=== PATIENT | female | born 1955 | race Caucasian/White ===

== ENCOUNTER → 2017-09-09 | Outpatient (CLI) | payer OTHER ==
--- NOTE | 2017-09-09 15:10 | XR ---
EXAMINATION TYPE: XR knee complete RT DATE OF EXAM: 09/09/2017 CLINICAL HISTORY: Generalized right knee pain for 2 months. TECHNIQUE: Three views of the right knee are obtained. COMPARISON: None. FINDINGS: Osseous structures are somewhat demineralized. There is no acute fracture/dislocation evide nt in right knee. Is mild tricompartment joint space loss without significant spurring. The overlying soft tissue appears unremarkable. IMPRESSION: As above.
== END | disposition home or self-care (01) ==
LOC: RADXRYALE 14:52
PROVIDERS: ATTEND Physician Assistant Medical
DX: M25.861 Other specified joint disorders, right knee (principal)

== ENCOUNTER → 2019-04-20 | Outpatient (CLI) | payer OTHER ==
--- NOTE | 2019-04-20 13:49 | XR ---
EXAMINATION TYPE: XR finger RT DATE OF EXAM: 04/20/2019 COMPARISON: NONE HISTORY: Right hand pain for 6 months. No known injury. Pain is localized to the first carpometacarpa l joint TECHNIQUE: 2 views of the right thumb/first digit were obtained FINDINGS: There is degenerative change of the first carpometacarpal joint with opposing surface scler osis, subchondral cyst formation and and bony productive change. Carpal carpal interspaces are mainta ined. No acute fracture or dislocation is seen of the right first digit. IMPRESSION: Moderate arthropathy of the first carpometacarpal joint. No acute fracture or dislocation on the first right digit.
== END | disposition home or self-care (01) ==
LOC: RADXRYALE 13:36
PROVIDERS: ATTEND Physician Assistant Medical
DX: M18.11 Unilateral primary osteoarthritis of first carpometacarpal joint, right hand (principal)

== ENCOUNTER → 2021-08-04 | Outpatient (CLI) | payer OTHER ==
--- NOTE | 2021-08-05 08:23 | XR ---
EXAMINATION TYPE: XR knee complete LT DATE OF EXAM: 08/04/2021 CLINICAL HISTORY: pain TECHNIQUE: Three views of the left knee are obtained. COMPARISON: None. FINDINGS: There is no acute fracture/dislocation. The tri-compartment joint spaces appear within no rmal limits. The overlying soft tissue appears unremarkable. Small suprapatellar joint effusion note d. IMPRESSION: There is no acute fracture or dislocation ICD 10 NO FRACTURE, INITIAL EVALUATION
== END | disposition home or self-care (01) ==
LOC: RADXRYALE 15:50
PROVIDERS: ATTEND Family Medicine
DX: M25.562 Pain in left knee (principal)

== ENCOUNTER → 2022-10-04 | Outpatient (CLI) | payer MEDICARE ==
--- NOTE | 2022-10-04 23:33 | CT ---
EXAMINATION TYPE: CT abdomen wo con DATE OF EXAM: 10/04/2022 HISTORY: Follow up for abnormal liver function labs. CT DLP: 881.7 mGycm. Automated Exposure Control for Dose Reduction was Utilized. TECHNIQUE: CT scan of the abdomen is performed with oral but without IV contrast. COMPARISON: NONE FINDINGS: Within the limitations of a non-contrast study, the following observations are made. LUNG BASES: Three-vessel coronary artery calcification and/or stents are present. LIVER/GB: Cholecystectomy clips are seen. Liver is normal in size without concerning solid or cystic intrahepatic mass. There is some central pneumobilia. There is no suspicious biliary dilatation. PANCREAS: No significant abnormality is seen. SPLEEN: No significant abnormality is seen. ADRENALS: No significant abnormality is seen. KIDNEYS: No significant abnormality is seen. BOWEL: Oral contrast does not reach the level of terminal ileum. Appendix appears within normal limit s extending medially from base of cecum. Visualized bowel is unremarkable LYMPH NODES: No greater than 1cm abdominal lymph nodes are appreciated. OSSEOUS STRUCTURES: Tzxtuvgl-eu-gqoxme disc space narrowing and vacuum disc phenomenon L4-L5 level. M ild to moderate disc space narrowing with vacuum disc phenomenon at L5-S1 level. Multilevel facet art hropathy in the lumbar spine. OTHER: No significant additional abnormality is seen. IMPRESSION: Normal size liver without worrisome intrahepatic mass or intrahepatic ductal dilatation. Gallbladder surgically absent. Central pneumobilia is nonspecific.
== END | disposition home or self-care (01) ==
LOC: RADCTMAIN 15:33
PROVIDERS: ATTEND Family Medicine
DX: R74.01 Elevation of levels of liver transaminase levels (principal); R93.3 Abnormal findings on diagnostic imaging of other parts of digestive tract; Z90.49 Acquired absence of other specified parts of digestive tract
CPT/HCPCS: 74150

== ENCOUNTER → 2024-07-14 | Outpatient (CLI) | payer MEDICARE ==
--- NOTE | 2024-07-14 12:48 | XR ---
EXAMINATION TYPE: XR abdomen 2V DATE OF EXAM: 07/14/2024 CLINICAL HISTORY: Lower abdominal and upper abdominal pain. Constipation and diarrhea for one week TECHNIQUE: Supine and upright views of the abdomen are obtained. COMPARISON: CT abdomen and pelvis October 04, 2022. FINDINGS: Scattered gas is seen in non-distended small bowel loops. Gas and fecal material is seen in non-distended colon. Cholecystectomy clips are redemonstrated. No free air is seen. Moderate degen erative changes of both hips is present. Visualized lung bases are grossly clear. IMPRESSION: Overall nonobstructive bowel gas pattern. [facility], , 07/14/2024 12:46 PM
== END | disposition home or self-care (01) ==
LOC: RADXRYALE 11:45
PROVIDERS: ATTEND Family Medicine
DX: K59.00 Constipation, unspecified (principal); R19.7 Diarrhea, unspecified
CPT/HCPCS: 74019

== ENCOUNTER 2024-12-04 09:55 | Day surgery (SDC) | payer MEDICARE ==
[2024-12-04] MEDS: IV FLUID CONTINUATION 1,000 ML IV ONE (10:12)
[2024-12-04 10:23] VITALS: RESP 16; TEMP 98.1
[2024-12-04] MEDS: LACTATED RINGERS 1,000 ML IV SCH (10:32)
[2024-12-04] MEDS ORDERED: PROPOFOL 10 MG/ML 20 ML VIAL IV ONE (11:20)
--- NOTE | 2024-12-04 11:36 | P.PCN ---
Date of Procedure: 12/04/24 Procedure(s) Performed: BRIEF HISTORY: Patient is a 69-year-old pleasant white female scheduled for an elective colonoscopy as a part of evaluation of chronic diarrhea of 6 months duration. She has been having 5-10 loose watery bowel movements daily with no blood or mucus in the stool. PROCEDURE PERFORMED: Colonoscopy with random biopsy. PREOPERATIVE DIAGNOSIS: Chronic diarrhea. IV sedation per Anesthesia. PROCEDURE: After informed consent was obtained, the patient, was brought into the endoscopy unit. IV sedation was administered by Anesthesia under continuous monitoring. Digital rectal examination was normal. Initially the Olympus CF-160 flexible video colonoscope was then inserted in the rectum, gradually advanced into the cecum without any difficulty. Careful examination was performed as the scope was gradually being withdrawn. Ileocecal valve and the appendiceal orifice were visualized and appeared normal. Prep was excellent. Mucosa of the cecum, appeared normal. Despite multiple attempts I was not able to intubate the terminal ileum. There was a stricture identified at the junction of the cecum and ascending colon with superficial ulceration and biopsies were done from this area. There was another early stricture in the hepatic flexure with superficial ulcerations which was also biopsied. In the transverse colon there another superficial ulcerations that was biopsied. Intervening mucosa appeared normal. In the descending colon there was a linear superficial ulceration which was also biopsied. The sigmoid colon, and rectum appeared normal. Random biopsies were done from the ascending and descending colon to rule out microscopic/collagenous colitis. Retroflexion was performed in the rectum and no lesions were seen. The patient tolerated the procedure well. IMPRESSION: Scattered linear superficial ulcerations in the ascending colon, transverse colon descending colon with narrowing in the hepatic flexure and proximal ascending colon status post multiple biopsies rule out Crohn's disease , Ileum could not be intubated RECOMMENDATIONS: Findings of this examination were discussed with the patient as well as her family. She was advised to follow the biopsy codes. She will be seen in office in 2 weeks..
[2024-12-04 13:55] VITALS: BP 101/54; PULSE 72
== END 2024-12-04 12:20 | disposition home or self-care (01) ==
LOC: ORWHC2ENDO 09:55
PROVIDERS: ATTEND Internal Medicine Gastroenterology
DX: K52.9 Noninfective gastroenteritis and colitis, unspecified (principal); K63.3 Ulcer of intestine; K56.699 Other intestinal obstruction unspecified as to partial versus complete obstruction
CPT/HCPCS: 88305; 45380; J2704